=== PATIENT | male | born 1940 | race Caucasian/White ===

== ENCOUNTER → 2016-10-01 | Outpatient (CLI) | payer OTHER ==
[2016-07-31 10:56] VITALS: BP 167/87
== END ==
LOC: LAB 08:17
PROVIDERS: ATTEND Internal Medicine Cardiovascular Disease
DX: Z79.01 Long term (current) use of anticoagulants (principal)
CPT/HCPCS: 36415; 85610

== ENCOUNTER → 2016-10-12 | Outpatient (CLI) | payer OTHER ==
[2016-07-31 10:56] VITALS: BP 167/87
[2016-10-12 09:40] LABS: HEMOGLOBIN A1C 6.6 % (4.5-6.2)
[2016-10-12 10:06] LABS: ALANINE AMINOTRANSFERASE 27 Units/L (12-78); ALBUMIN 3.7 g/dL (3.4-5.0); ALKALINE PHOSPHATASE 88 Units/L (46-116); ASPARTATE AMINO TRANSFERASE 30 Units/L (15-37); BLOOD UREA NITROGEN 20 mg/dL (7-18); CALCIUM 8.8 mg/dL (8.5-10.1); CARBON DIOXIDE 27.8 mmol/L (21-32); CHLORIDE 102 mmol/L (98-107); CHOL/HDL RATIO 3.9 (0.0-5.0); CHOLESTEROL 154 mg/dL (0-200); COR NA(FOR HYPERGLY) 141 mmol/L (136-145); CREATININE 0.88 mg/dL (0.70-1.30); GLUCOSE 179 mg/dL (65-99); HDL CHOLESTEROL 39 mg/dL (40-60); SODIUM 139 mmol/L (136-145); TOTAL PROTEIN 7.9 g/dL (6.4-8.2); TRIGLYCERIDES 47 mg/dL (0-150); eGFR BLACK RACES > 60 (>60); eGFR NON BLACK RACES > 60 (>60)
== END ==
LOC: LAB 08:36
PROVIDERS: ATTEND Internal Medicine Cardiovascular Disease
DX: Z00.00 Encounter for general adult medical examination without abnormal findings (principal); E11.9 Type 2 diabetes mellitus without complications; Z79.899 Other long term (current) drug therapy; Z79.01 Long term (current) use of anticoagulants
CPT/HCPCS: 36415; 80053; 80061; 83036; 85610

== ENCOUNTER → 2016-11-06 | Outpatient (CLI) | payer OTHER ==
[2016-07-31 10:56] VITALS: BP 167/87
== END ==
LOC: LAB 08:26
PROVIDERS: ATTEND Internal Medicine Cardiovascular Disease
DX: Z79.01 Long term (current) use of anticoagulants (principal)
CPT/HCPCS: 36415; 85610

== ENCOUNTER → 2016-12-04 | Outpatient (CLI) | payer OTHER ==
[2016-07-31 10:56] VITALS: BP 167/87
== END ==
LOC: LAB 08:53
PROVIDERS: ATTEND Internal Medicine Cardiovascular Disease
DX: Z79.01 Long term (current) use of anticoagulants (principal)
CPT/HCPCS: 36415; 85610

== ENCOUNTER → 2017-01-04 | Outpatient (CLI) | payer OTHER ==
[2016-07-31 10:56] VITALS: BP 167/87
== END ==
LOC: LAB 08:41
PROVIDERS: ATTEND Internal Medicine Cardiovascular Disease
DX: Z79.01 Long term (current) use of anticoagulants (principal)
CPT/HCPCS: 36415; 85610

== ENCOUNTER → 2017-01-31 | Outpatient (CLI) | payer OTHER ==
[2016-07-31 10:56] VITALS: BP 167/87
== END ==
LOC: LAB 08:29
PROVIDERS: ATTEND Internal Medicine Cardiovascular Disease
DX: Z79.01 Long term (current) use of anticoagulants (principal)
CPT/HCPCS: 36415; 85610

== ENCOUNTER → 2017-03-07 | Outpatient (CLI) | payer OTHER ==
[2016-07-31 10:56] VITALS: BP 167/87
== END ==
LOC: LAB 08:40
PROVIDERS: ATTEND Internal Medicine Cardiovascular Disease
DX: R79.1 Abnormal coagulation profile (principal); Z79.01 Long term (current) use of anticoagulants
CPT/HCPCS: 36415; 85610

== ENCOUNTER → 2017-04-01 | Outpatient (CLI) | payer OTHER ==
[2016-07-31 10:56] VITALS: BP 167/87
== END ==
LOC: LAB 08:35
PROVIDERS: ATTEND Internal Medicine Cardiovascular Disease
DX: I82.509 Chronic embolism and thrombosis of unspecified deep veins of unspecified lower extremity (principal); Z79.01 Long term (current) use of anticoagulants
CPT/HCPCS: 36415; 85610

== ENCOUNTER → 2017-04-16 | Outpatient (CLI) | payer OTHER ==
[2016-07-31 10:56] VITALS: BP 167/87
[2017-04-16 09:25] LABS: ALANINE AMINOTRANSFERASE 23 Units/L (12-78); ALBUMIN 3.6 g/dL (3.4-5.0); ALKALINE PHOSPHATASE 89 Units/L (46-116); ASPARTATE AMINO TRANSFERASE 20 Units/L (15-37); BLOOD UREA NITROGEN 19 mg/dL (7-18); CALCIUM 8.7 mg/dL (8.5-10.1); CARBON DIOXIDE 27.6 mmol/L (21-32); CHLORIDE 104 mmol/L (98-107); CHOLESTEROL 164 mg/dL (0-200); COR NA(FOR HYPERGLY) 140 mmol/L (136-145); CREATININE 0.97 mg/dL (0.70-1.30); HDL CHOLESTEROL 33 mg/dL (40-60); SODIUM 139 mmol/L (136-145); TRIGLYCERIDES 110 mg/dL (0-150); eGFR BLACK RACES > 60 (>60); eGFR NON BLACK RACES > 60 (>60)
[2017-04-16 09:47] LABS: HEMOGLOBIN A1C 7.1 % (4.5-6.2)
== END ==
LOC: LAB 08:49
PROVIDERS: ATTEND Internal Medicine Cardiovascular Disease
DX: I10 Essential (primary) hypertension (principal); E11.9 Type 2 diabetes mellitus without complications
CPT/HCPCS: 36415; 80053; 80061; 83036

== ENCOUNTER → 2017-04-29 | Outpatient (CLI) | payer OTHER ==
[2016-07-31 10:56] VITALS: BP 167/87
== END ==
LOC: LAB 09:43
PROVIDERS: ATTEND Internal Medicine Cardiovascular Disease
DX: I82.509 Chronic embolism and thrombosis of unspecified deep veins of unspecified lower extremity (principal)
CPT/HCPCS: 36415; 85610

== ENCOUNTER → 2017-06-04 | Outpatient (CLI) | payer OTHER ==
[2016-07-31 10:56] VITALS: BP 167/87
== END ==
LOC: LAB 08:55
PROVIDERS: ATTEND Internal Medicine Cardiovascular Disease
DX: I82.509 Chronic embolism and thrombosis of unspecified deep veins of unspecified lower extremity (principal); R79.1 Abnormal coagulation profile
CPT/HCPCS: 36415; 85610

== ENCOUNTER → 2017-06-28 | Outpatient (CLI) | payer OTHER ==
[2016-07-31 10:56] VITALS: BP 167/87
== END ==
LOC: LAB 08:46
PROVIDERS: ATTEND Internal Medicine Cardiovascular Disease
DX: I82.509 Chronic embolism and thrombosis of unspecified deep veins of unspecified lower extremity (principal); R79.1 Abnormal coagulation profile
CPT/HCPCS: 36415; 85610

== ENCOUNTER → 2017-07-25 | Outpatient (CLI) | payer OTHER ==
[2016-07-31 10:56] VITALS: BP 167/87
== END ==
LOC: LAB 09:46
PROVIDERS: ATTEND Internal Medicine Cardiovascular Disease
DX: I82.509 Chronic embolism and thrombosis of unspecified deep veins of unspecified lower extremity (principal)
CPT/HCPCS: 36415; 85610

== ENCOUNTER → 2017-08-27 | Outpatient (CLI) | payer OTHER ==
[2016-07-31 10:56] VITALS: BP 167/87
== END ==
LOC: LAB 09:09
PROVIDERS: ATTEND Internal Medicine Cardiovascular Disease
DX: I82.509 Chronic embolism and thrombosis of unspecified deep veins of unspecified lower extremity (principal); R79.1 Abnormal coagulation profile
CPT/HCPCS: 36415; 85610

== ENCOUNTER → 2017-10-03 | Outpatient (CLI) | payer OTHER ==
[2016-07-31 10:56] VITALS: BP 167/87
== END ==
LOC: LAB 08:47
PROVIDERS: ATTEND Internal Medicine Cardiovascular Disease
DX: I82.509 Chronic embolism and thrombosis of unspecified deep veins of unspecified lower extremity (principal); R79.1 Abnormal coagulation profile
CPT/HCPCS: 36415; 85610

== ENCOUNTER → 2017-10-14 | Outpatient (CLI) | payer OTHER ==
[2016-07-31 10:56] VITALS: BP 167/87
[2017-10-14 09:21] LABS: ALANINE AMINOTRANSFERASE 27 Units/L (12-78); ALBUMIN 3.8 g/dL (3.4-5.0); ALKALINE PHOSPHATASE 93 Units/L (46-116); ASPARTATE AMINO TRANSFERASE 19 Units/L (15-37); BLOOD UREA NITROGEN 16 mg/dL (7-18); CALCIUM 8.3 mg/dL (8.5-10.1); CHLORIDE 106 mmol/L (98-107); CHOL/HDL RATIO 4.3 (0.0-5.0); CHOLESTEROL 150 mg/dL (0-200); COR NA(FOR HYPERGLY) 143 mmol/L (136-145); CREATININE 0.84 mg/dL (0.70-1.30); HDL CHOLESTEROL 35 mg/dL (40-60); SODIUM 142 mmol/L (136-145); TOTAL PROTEIN 7.5 g/dL (6.4-8.2); TRIGLYCERIDES 83 mg/dL (0-150); eGFR BLACK RACES > 60 (>60); eGFR NON BLACK RACES > 60 (>60)
[2017-10-14 09:27] LABS: HEMOGLOBIN A1C 6.4 %
== END ==
LOC: LAB 08:25
PROVIDERS: ATTEND Internal Medicine Cardiovascular Disease
DX: E11.9 Type 2 diabetes mellitus without complications (principal); I10 Essential (primary) hypertension
CPT/HCPCS: 36415; 80053; 80061; 83036

== ENCOUNTER → 2017-10-28 | Outpatient (CLI) | payer OTHER ==
[2016-07-31 10:56] VITALS: BP 167/87
[2017-10-28 09:48] LABS: ALANINE AMINOTRANSFERASE 26 Units/L (12-78); ALBUMIN 3.6 g/dL (3.4-5.0); ALKALINE PHOSPHATASE 86 Units/L (46-116); ASPARTATE AMINO TRANSFERASE 19 Units/L (15-37); BLOOD UREA NITROGEN 19 mg/dL (7-18); CALCIUM 8.4 mg/dL (8.5-10.1); CARBON DIOXIDE 28.6 mmol/L (21-32); CHLORIDE 102 mmol/L (98-107); CHOL/HDL RATIO 4.7 (0.0-5.0); CHOLESTEROL 137 mg/dL (0-200); COR NA(FOR HYPERGLY) 137 mmol/L (136-145); CREATININE 0.95 mg/dL (0.70-1.30); HDL CHOLESTEROL 29 mg/dL (40-60); SODIUM 136 mmol/L (136-145); TRIGLYCERIDES 101 mg/dL (0-150); eGFR BLACK RACES > 60 (>60); eGFR NON BLACK RACES > 60 (>60)
[2017-10-28 10:04] LABS: HEMOGLOBIN A1C 6.9 %
== END ==
LOC: LAB 08:51
PROVIDERS: ATTEND Internal Medicine Cardiovascular Disease
DX: E11.9 Type 2 diabetes mellitus without complications (principal); I10 Essential (primary) hypertension
CPT/HCPCS: 36415; 80053; 80061; 83036

== ENCOUNTER → 2017-11-14 | Outpatient (CLI) | payer OTHER ==
[2016-07-31 10:56] VITALS: BP 167/87
== END ==
LOC: LAB 07:38
PROVIDERS: ATTEND Internal Medicine Cardiovascular Disease
DX: I82.509 Chronic embolism and thrombosis of unspecified deep veins of unspecified lower extremity (principal); Z79.01 Long term (current) use of anticoagulants
CPT/HCPCS: 36415; 85610